=== PATIENT | female | born 1990 | race Caucasian/White ===

== ENCOUNTER 2017-01-18 19:46 | Observation (INO) | payer OTHER ==
[~2017-01-18] VITALS: Ht 162.6 cm; Wt 112.5 kg
[2017-01-18 20:45] LABS: BILIRUBIN,URINE NEGATIVE (NEGATIVE); UROBILINOGEN,URINE NORMAL (NEGATIVE)
[2017-01-18 21:04] LABS: APPEARANCE,URINE CLOUDY (CLEAR); UA COLOR YELLOW (YELLOW)
[2017-01-18 21:05] LABS: UR BENZODIAZEPINE QUAL NEGATIVE (NEGATIVE); UR COCAINE QUAL NEGATIVE (NEGATIVE)
[2017-01-18] MEDS ORDERED: D5LR 1000ML 1,000 ML ONE (22:26)
[2017-01-18] MEDS ORDERED: LACTATED RINGERS 1,000 ML ONE (22:26)
[2017-01-18] MEDS ORDERED: TYLENOL PO PRN (22:30)
[2017-01-18] MEDS ORDERED: D5LR 1000ML 1,000 ML IV ONE (22:30)
[2017-01-18] MEDS ORDERED: LACTATED RINGERS 1,000 ML IV ONE (22:30)
[2017-01-18] MEDS ORDERED: TYLENOL PO ONE (22:46)
[2017-01-19] MEDS ORDERED: CEFD300C2 PO (00:15)
[2017-01-19] MEDS ORDERED: IRON1CAP13 PO (00:15)
== END 2017-01-19 00:36 | disposition home or self-care (01) ==
LOC: ATP 19:46
PROVIDERS: ADMIT Hospitalist; ATTEND Hospitalist
DX: O26.899 Other specified pregnancy related conditions, unspecified trimester (principal); R10.9 Unspecified abdominal pain; M54.9 Dorsalgia, unspecified; Z3A.00 Weeks of gestation of pregnancy not specified
CPT/HCPCS: 59025; 80307; 81000; 87086; 96360; 96361; G0378 ×5; J7042 ×2; J7120 ×2

== ENCOUNTER → 2017-02-20 | Outpatient (CLI) | payer OTHER ==
[~2017-02-20] VITALS: Ht 162.6 cm; Wt 113.4 kg
[~2017-02-20] MED LIST: CEFD300C2 PO; IRON1CAP13 PO
--- NOTE | 2017-02-20 12:52 | DIREP ---
PROCEDURE:US BIOPHYSICAL PROFILE W/O NON STRESS COMPARISON:None. INDICATIONS:O09.33 THIRD TRIMESTER INSUFFICIENT CARE FINDINGS: Breathing:Normal, 2. Movement:Normal, 2. Tone:Normal, 2. Fluid:Normal, 2. Summary Fetus Summary Estimated Weight:3209.27 g Heart Rate:156.83 bpm Gestational Age (BPD):8.8 cm; 35 weeks, 5 days; 21.1 % Gestational Age (HC):32.7 cm; 37 weeks, 0 days; 18.6 % Gestational Age (AC):34.2 cm; 38 weeks, 1 day; 81.8 % Gestational Age (FL):7.2 cm; 37 weeks, 0 days; 40 % EGA based on biometrics:37 weeks 0 days SARAI based on biometrics:March 13, 2017 Clinical GA:37 weeks 3 days Clinical SARAI:March 10, 2017 Cervical Length: 3.4 cm ANIVAL: 15.5 cm Position: Cephalic. Placental Location: Fundal. Previa: None demonstrated. CONCLUSION: 1. The biophysical profile is scored 8 out of 8. 2. biometrics suggest a gestational age of approximately 37W 0D, with an Estimated Weight (EFW) of 3209gm (7lb, 1oz). Dictated by: MONO Physician on 02/20/2017 at 10:45 AM ld
== END | disposition home or self-care (01) ==
LOC: RAD 09:30
PROVIDERS: ATTEND Hospitalist
DX: O09.33 Supervision of pregnancy with insufficient antenatal care, third trimester (principal); Z3A.37 37 weeks gestation of pregnancy
CPT/HCPCS: 59025; 76815; 76819

== ENCOUNTER 2017-03-04 00:09 | Inpatient (IN) | payer OTHER ==
[2017-02-27 13:40] VITALS: BP 154/75
[2017-02-27 14:16] LABS: BASOPHIL % 0.1 % (0.0-0.2); EOSINOPHIL # 0.1 10^3/uL (0.0-0.2); EOSINOPHIL % 0.5 % (0.0-5.0); HEMOGLOBIN 10.6 g/dL (12.0-15.0); LYMPHOCYTES # 2.4 10^3/uL (1.0-4.8); LYMPHOCYTES % 25.3 % (24.0-44.0); MEAN CELL HGB 26.4 pg (26-34); MEAN CELL HGB CONCENTRATION 31.5 g/dL (33-37); MEAN CORP VOLUME 83.8 fL (78-100); MEAN PLATELET VOLUME 11.8 fL (7.8-11.0); MONOCYTES # 0.6 10^3/uL (0.3-0.8); NEUTROPHIL # 6.4 10^3/uL (1.8-7.7); NEUTROPHILS % 67.6 % (41.0-85.0); RED CELL DISTRIBUTION WIDTH 13.8 % (11.5-14.5); WHITE BLOOD CELL 9.5 10^3/uL (4.5-11.0)
[2017-02-27 14:43] LABS: APPEARANCE,URINE CLEAR (CLEAR); BILIRUBIN,URINE NEGATIVE (NEGATIVE); UA COLOR AMBER (YELLOW); UROBILINOGEN,URINE NORMAL (NEGATIVE)
[~2017-03-04] VITALS: Ht 162.6 cm; Wt 117.0 kg
[2017-03-04] VITALS (9 sets, daily range): BP systolic 106–139; BP diastolic 57–81
[~2017-03-04 00:09] MED LIST changes: +CLEOCIN ONE; +LACTATED RINGERS 2,000 ML ONE; +NS 100ML 100 ML IV ONE
[2017-03-04] MEDS: LACTATED RINGERS 1,000 ML IV PRN ×2 (05:50→06:22)
[2017-03-04] MEDS ORDERED: LACTATED RINGERS 2,000 ML ONE (06:45)
[2017-03-04] MEDS ORDERED: BENADRYL ONE (06:45)
[2017-03-04] MEDS ORDERED: ZOFRAN ONE ×3 (06:45→20:10)
[2017-03-04] MEDS ORDERED: NS 100ML 100 ML IV ONE (06:45)
[2017-03-04] MEDS ORDERED: TORADOL ONE ×3 (06:46→21:37)
[2017-03-04] MEDS ORDERED: DURAMORPH ONE (06:46)
[2017-03-04] MEDS ORDERED: PITOCIN ONE (06:46)
[2017-03-04] MEDS ORDERED: VERSED ONE (06:46)
[2017-03-04] MEDS ORDERED: EPHEDRINE SULFATE ONE (06:47)
[2017-03-04] MEDS ORDERED: DECADRON ONE (06:47)
[2017-03-04] MEDS ORDERED: CLEOCIN IV ONE (07:00)
[2017-03-04] MEDS ORDERED: PITOCIN 0.02 UNIT in LACTATED RINGERS 1 ML IV SCH (09:28)
[2017-03-04] MEDS ORDERED: GAVISCON ES TABLET CHEW PO PRN (09:30)
[2017-03-04] MEDS ORDERED: LACTATED RINGERS IV SCH (09:30)
[2017-03-04] MEDS ORDERED: MILK OF MAGNESIA PO PRN (09:30)
[2017-03-04] MEDS ORDERED: DILAUDID IV PRN (09:30)
[2017-03-04] MEDS ORDERED: PHENERGAN IV PRN (09:30)
[2017-03-04] MEDS ORDERED: NORCO 7.5MG PO PRN (09:30)
[2017-03-04] MEDS ORDERED: AMBIEN PO PRN (09:30)
[2017-03-04] MEDS ORDERED: DEMEROL IV PRN (09:30)
[2017-03-04] MEDS ORDERED: BENADRYL PO PRN (09:30)
[2017-03-04] MEDS ORDERED: ZOFRAN ODT SL PRN (09:30)
--- NOTE | 2017-03-04 09:44 | PRM.OPH ---
Immediate Post Op Note Summary of Operation Date: Mar 04, 2017 Time: 09:38 Pre-Operative DX: IUP @ 39 1/7 WKS; H/O C/S X 3; UNDESIRED FERTILITY/DESIRES PERMANENT STERIL Post-OP DX: SAME Anesth.Used: SPINAL Indications: REPEAT LOW TRANSVERSE SECTION VIA PFANNENSTIEL SKIN INCISION, BILATERAL TUBAL LIGATION VIA [place] METHOD Physician's Summary: Healthy-appearing liveborn male in OA position, no nuchal cord noted, clear-colored fluid/membranes throughout. Baby boy born at 0837, Apgars of 8 and 9, weight 3215g (= 7# 1oz). Good cry heard in delivery room. Normal- appearing placenta. Uterus completely adhesed to anterior abdominal wall. Normal-appearing ovaries bilaterally/tubes bilaterally. Extensive adhesiolysis carried out to isolate lower uterine segment. BTL performed via [place] method. Assistants: Listed Assisting Physicians MIREYA HOOD MD; JAVIER WILLIAM CST; ABEBA TOMLIN CST Anesthesiologist/INDUSTRIAL PHOTOGRAPHER SONIA SOLIS CRNA Specimen(s) Removed: List Specimen: SEGMENTS OF RIGHT AND LEFT FALLOPIAN TUBES Estimated Blood Loss: EBL/ESTIMATED BLOOD LOSS: (MIL: 700 Complications: Complications: NONE Assessment & Plan: Update Surgical HX/Problems: (1) Status post repeat low transverse section (2) Encounter for female sterilization procedure (3) 39 weeks gestation of (4) H/O: Assessment & Plan: ROUTINE POSTOP/ CARE SONIA MOORE MD Mar 04, 2017 09:44
[2017-03-04] MEDS ORDERED: NUBAIN IV PRN (10:00)
[2017-03-04] MEDS ORDERED: REGLAN IV PRN (10:00)
[2017-03-04] MEDS ORDERED: NORCO 5MG PO PRN (10:00)
[2017-03-04] MEDS ORDERED: ZOFRAN IV PRN (10:00)
[2017-03-04] MEDS ORDERED: BENADRYL IV PRN (10:00)
[2017-03-04] MEDS ORDERED: NORCO 10MG PO PRN (10:00)
[2017-03-04] MEDS ORDERED: NARCAN IV PRN (10:00)
[2017-03-04] MEDS ORDERED: LACTATED RINGERS 1,000 ML ONE ×2 (13:59→22:08)
[2017-03-04] MEDS: ZOFRAN IV PRN ×2 (14:02→20:15)
--- NOTE | 2017-03-04 14:32 | NUR ---
8 & 9, PLACED IN WARM BLANKETS, LEFT WITH L/D STAFF Addendum: 03/04/17 at 1433 by Radha Palacios GEAR FINISHER RT Amended: Links added.
[2017-03-04] MEDS: TORADOL IV SCH ×2 (14:59→21:42)
[2017-03-04] MEDS ORDERED: TORADOL IV SCH (15:30)
[2017-03-04] MEDS ORDERED: LR/PITOCIN 500 ML IV SCH (16:30)
[2017-03-04] MEDS ORDERED: MILK OF MAGNESIA ONE (23:56)
[2017-03-05] MEDS ORDERED: NORCO 5MG PO ONE ×2 (04:33→14:53)
[2017-03-05 05:15] LABS: BASOPHIL % 0.1 % (0.0-0.2); EOSINOPHIL % 0.1 % (0.0-5.0); HEMOGLOBIN 7.7 g/dL (12.0-15.0); LYMPHOCYTES # 2.7 10^3/uL (1.0-4.8); LYMPHOCYTES % 20.3 % (24.0-44.0); MEAN CELL HGB 26.1 pg (26-34); MEAN CELL HGB CONCENTRATION 30.8 g/dL (33-37); MEAN CORP VOLUME 84.7 fL (78-100); MONOCYTES # 0.9 10^3/uL (0.3-0.8); MONOCYTES % 6.4 % (5.0-12.0); NEUTROPHIL # 9.8 10^3/uL (1.8-7.7); NEUTROPHILS % 72.7 % (41.0-85.0); RED CELL DISTRIBUTION WIDTH 13.8 % (11.5-14.5); WHITE BLOOD CELL 13.5 10^3/uL (4.5-11.0)
[2017-03-05] MEDS ORDERED: LEVAQUIN 100 ML IV ONE (06:21)
[2017-03-05] MEDS ORDERED: TORADOL ONE (06:22)
[2017-03-05] MEDS: TORADOL IV SCH ×2 (06:37)
[2017-03-05] MEDS ORDERED: LEVAQUIN 100 ML IV SCH (07:00)
--- NOTE | 2017-03-05 07:23 | NUR ---
Post op pain rounds POD #1 after SAB duramorph. Pt lying in bed with baby in arms. All sensations intact. No residual numbness. Pt has been ambulating. Pain well controlled. Pt is very pleased with anesthetic and SAb duramorph. No complications noted.
[2017-03-05] MEDS ORDERED: HYDR-925 PO (13:01)
--- NOTE | 2017-03-05 13:04 | PRM.DC ---
OB Discharge Summary Discharge Summary Discharge Diagnosis: S/P (S/P Repeat C/S WITH BTL) Complications: No Complications Abnormal Lab Results Laboratory Tests Test 03/05/17 04:50 White Blood Count 13.5 10^3/uL Red Blood Count 2.95 10^6/uL Hemoglobin 7.7 g/dL Hematocrit 25.0 % Mean Corpuscular Volume 84.7 fL Mean Corpuscular Hemoglobin 26.1 pg Mean Corpuscular Hemoglobin Concent 30.8 g/dL Red Cell Distribution Width 13.8 % Platelet Count 224 10^3/uL Mean Platelet Volume 11.0 fL Neutrophils (%) (Auto) 72.7 % Lymphocytes (%) (Auto) 20.3 % Monocytes (%) (Auto) 6.4 % Neutrophils # (Auto) 9.8 10^3/uL Lymphocytes # (Auto) 2.7 10^3/uL Monocytes # (Auto) 0.9 10^3/uL Absolute Immature Granulocyte (auto 0.05 10^3 u/L Eosinophils % 0.1 % Basophils % 0.1 % Basophils # 0.0 10^3/uL Eosinophil Count 0.0 10^3/uL Percent Immature Gran (Cell Imm) 0.40 % Medications: Other (Rx for [place] 7.5/325 #60 no refills--given to patient ahead of time (preop appointment)) Discharge Disposition: Stable Discharge Instructions: Pelvic Rest x 6 Weeks, Clinic F/U 1-2 Weeks, Regular Diet, Regular Activity, Meds as Prescribed, Call MD for Problems Additional Comments Extensive adhesiolysis performed during repeat C/S with BTL. Appreciate Dr Ishaan Garcia's assistance in the OR. SONIA MOORE MD Mar 05, 2017 13:04
[2017-03-05] MEDS ORDERED: MOTRIN ONE ×2 (14:53→23:40)
[2017-03-05] MEDS ORDERED: PRENATAL VITAMIN TABLET PO ONE (14:57)
[2017-03-05] MEDS: PRENATAL VITAMIN TABLET PO SCH (14:58)
[2017-03-05] MEDS: MOTRIN PO PRN ×3 (14:59→23:45)
[2017-03-05] MEDS ORDERED: NORCO 7.5MG PO ONE ×2 (15:00→23:40)
[2017-03-05] MEDS: NORCO 7.5MG PO PRN ×2 (15:02→23:44)
[2017-03-05] MEDS ORDERED: LANOLIN HYDROUS TP ONE ×2 (15:11→15:30)
[2017-03-06] MEDS ORDERED: NS 1000ML 1,000 ML ONE (09:39)
[2017-03-06] MEDS ORDERED: NORCO 7.5MG PO ONE (10:47)
[2017-03-06] MEDS ORDERED: MOTRIN ONE (10:47)
[2017-03-06] MEDS: NORCO 7.5MG PO PRN (10:52)
[2017-03-06] MEDS: MOTRIN PO PRN (10:52)
[2017-03-06] MEDS ORDERED: PRENATAL VITAMIN TABLET PO ONE (10:52)
[2017-03-06] MEDS: PRENATAL VITAMIN TABLET PO SCH (10:53)
[2017-03-06 18:09] VITALS: BP 131/59
== END 2017-03-06 11:30 | disposition home or self-care (01) | DRG 540 ==
LOC: LND 00:09 → EDPENDDISTM 03-06 11:30
PROVIDERS: ADMIT Hospitalist; ATTEND Hospitalist
PROC: 10D00Z1 Extraction of Products of Conception, Low, Open Approach (ICD-10-PCS; 2017-03-04)
PROC: 0UN90ZZ Release Uterus, Open Approach (ICD-10-PCS; 2017-03-04)
PROC: 0UB70ZZ Excision of Bilateral Fallopian Tubes, Open Approach (ICD-10-PCS; principal; 2017-03-04 08:00)
DX: O34.211 Maternal care for low transverse scar from previous cesarean delivery (principal); Z88.0 Allergy status to penicillin; Z30.2 Encounter for sterilization; Z37.0 Single live birth; Z3A.39 39 weeks gestation of pregnancy; Z87.891 Personal history of nicotine dependence
CPT/HCPCS: 36415; 59025; 76825; 81000; 85025; 86885; 86900; 86901; 86921; 87086; 88302; A4338; J1100; J1200; J1885; J1956; J2250; J2405; J2590; J3490; J7030; J7050; J7120; J2274

== ENCOUNTER 2017-03-07 19:37 | Observation (INO) | payer OTHER ==
[~2017-03-07] VITALS: Ht 162.6 cm; Wt 113.4 kg
[~2017-03-07 19:37] MED LIST changes: -CLEOCIN ONE; +HYDR-925 PO; -LACTATED RINGERS 2,000 ML ONE; -NS 100ML 100 ML IV ONE
--- NOTE | 2017-03-07 20:20 | NUR ---
URINE COLLECTED AND TAKEN TO LAB
[2017-03-07 20:21] LABS: BASOPHIL % 0.3 % (0.0-0.2); EOSINOPHIL # 0.1 10^3/uL (0.0-0.2); EOSINOPHIL % 0.6 % (0.0-5.0); HEMOGLOBIN 7.2 g/dL (12.0-15.0); LYMPHOCYTES % 25.4 % (24.0-44.0); MEAN CELL HGB 27.1 pg (26-34); MEAN CELL HGB CONCENTRATION 31.3 g/dL (33-37); MEAN CORP VOLUME 86.5 fL (78-100); MEAN PLATELET VOLUME 9.8 fL (7.8-11.0); MONOCYTES # 0.5 10^3/uL (0.3-0.8); MONOCYTES % 6.1 % (5.0-12.0); NEUTROPHIL # 5.2 10^3/uL (1.8-7.7); NEUTROPHILS % 66.8 % (41.0-85.0); RED CELL DISTRIBUTION WIDTH 13.5 % (11.5-14.5); WHITE BLOOD CELL 7.7 10^3/uL (4.5-11.0)
[2017-03-07 20:24] LABS: BILIRUBIN,URINE NEGATIVE (NEGATIVE); UROBILINOGEN,URINE NORMAL (NEGATIVE)
[2017-03-07 20:26] LABS: APPEARANCE,URINE HAZY (CLEAR); UA COLOR YELLOW (YELLOW)
[2017-03-07 20:37] LABS: CALCIUM 8.6 mg/dL (8.4-10.5); CARBON DIOXIDE 26.1 mmol/L (20.0-32)
--- NOTE | 2017-03-07 22:13 | ER.PDOC ---
General Chief Complaint: Fever Stated Complaint: FEVER,HEADACHE,TUBAL/ 03-04-17 TRAVEL OUT OF US: No Time seen by MD: 22:05 Source: patient History of Present Illness Initial Comments 26y/o female s/p section and b/l tubal ligation on 03/04/[address] Barrios now presents with fever since 6pm today. Associated Symptoms: denies symptoms Allergies: Coded Allergies: Penicillins (Unverified Adverse Reaction, Unknown, SICK TO STOMACH, 03/04/17 ) Home Meds Active Scripts Hydrocodone Bit/Acetaminophen ([place] 7.5-325 TABLET) 7.5-3,251 Ea Tablet, 1 EACH PO Q4H Y for Pain 1-3 when tolerating PO for 30 Days, #60 TABLET 0 Refills Prov:SONIA MOORE MD 03/05/17 Reported Medications Iron Fum & Ps Cmp/Vit C & B (INTEGRA CAPSULE) 1 Each Capsule, 1 EACH PO DAILY24 , CAPSULE 01/19/17 Discontinued Reported Medications Cefdinir (CEFDINIR) 300 Mg Capsule, 300 MG PO HS, CAPSULE 01/19/17 Past Medical History Medical History: no pertinent history Surgical History: appendectomy, , tonsillectomy, tubal LMP (females 10-50): C-SEC ON FRIDAY Family History Significant Family History: no pertinent family hx Social History Smoking: cigarettes, less than 1 pack/day Alcohol Use: none Drug Use: none Review of Systems Constitutional: fever EENTM: no symptoms reported Respiratory: no symptoms reported Cardiovascular: no symptoms reported Gastrointestinal: no symptoms reported Genitourinary: no symptoms reported Musculoskeletal: no symptoms reported Skin: no symptoms reported Psychiatric/Neurological: no symptoms reported Hematologic/Lymphatic: no symptoms reported Immunological/Allergic: no symptoms reported Physical Exam General Appearance: No Apparent Distress, WD/WN EENT: eyes nml inspection, nml ENT inspection, pharynx nml Neck: Non-Tender, Full Range of Motion, Supple, Normal Inspection Respiratory: chest non-tender, lungs clear, normal breath sounds, no respiratory distress CVS: reg rate & rhythm, no murmur, no gallop, pulses nml, nml capillary refill Gastrointestinal: Normal Bowel Sounds, No Organomegaly, No Pulsatile Mass, Non Tender, Other (Transverse lower abdominal wound vac in place.) Back: Normal Inspection, No CVA Tenderness Extremities: Normal Range of Motion, Non-Tender, Normal Inspection, No Pedal Edema, No Calf Tenderness, Normal Capillary Refill 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, No Motor/Sensory Deficits, Alert, Normal Mood/Affect, Oriented x 3 Skin: Normal Color, Warm/Dry Lymphatic: No Adenopathy Results/Orders Results/Orders Laboratory Tests Test 03/07/17 20:18 White Blood Count 7.7 10^3/uL (4.5-11.0) Red Blood Count 2.66 10^6/uL (4.00-5.20) Hemoglobin 7.2 g/dL (12.0-15.0) Hematocrit 23.0 % (36.0-46.0) Mean Corpuscular Volume 86.5 fL (78-100) Mean Corpuscular Hemoglobin 27.1 pg (26-34) Mean Corpuscular Hemoglobin Concent 31.3 g/dL (33-37) Red Cell Distribution Width 13.5 % (11.5-14.5) Platelet Count 201 10^3/uL (150-400) Mean Platelet Volume 9.8 fL (7.8-11.0) Neutrophils (%) (Auto) 66.8 % (41.0-85.0) Lymphocytes (%) (Auto) 25.4 % (24.0-44.0) Monocytes (%) (Auto) 6.1 % (5.0-12.0) Neutrophils # (Auto) 5.2 10^3/uL (1.8-7.7) Lymphocytes # (Auto) 2.0 10^3/uL (1.0-4.8) Monocytes # (Auto) 0.5 10^3/uL (0.3-0.8) Absolute Immature Granulocyte (auto 0.06 10^3 u/L (0-2) Eosinophils % 0.6 % (0.0-5.0) Basophils % 0.3 % (0.0-0.2) Basophils # 0.0 10^3/uL (0.0-0.1) Eosinophil Count 0.1 10^3/uL (0.0-0.2) Urine Collection Type CCMS Urine Color YELLOW (YELLOW) Urine Appearance HAZY (CLEAR) Urine Bilirubin NEGATIVE MG/DL (NEGATIVE) Urine Ketones NEGATIVE (NEGATIVE) Urine Specific [place] 1.010 (1.005-1.035) Urine pH 6 (5.0-6.0) Urine Protein 15 mg/dL (NEGATIVE) Urine Urobilinogen NORMAL (NEGATIVE) Urine Nitrate NEGATIVE (NEGATIVE) Urine Leukocyte Esterase 100/ul 1+ (NEGATIVE) Urine Blood 250 4+ (NEGATIVE) Urine RBC 5-10 RBC/HPF (NONE SEEN) Urine WBC 5-10 WBC/HPF (0-2) Urine Squamous Epithelial Cells FEW #/HPF (FEW) Urine Bacteria FEW (NONE SEEN) Urine Glucose NORMAL (NEGATIVE) Sodium Level 140 mmol/L (132-145) Potassium Level 3.7 mmol/L (3.6-5.2) Chloride Level 105.0 mmol/L (96-109) Carbon Dioxide Level 26.1 mmol/L (20.0-32) Anion Gap 12.6 Blood Urea Nitrogen 8 mg/dL (7-18) Creatinine 0.85 mg/dL (0.59-1.40) Estimated GFR () 98.6 (>/=60) BUN/Creatinine Ratio 9.0 Glucose Level 92 mg/dL (70-110) Calcium Level 8.6 mg/dL (8.4-10.5) Total Bilirubin 0.3 mg/dL (0.2-1.0) Aspartate Amino Transf (AST/SGOT) 22 U/L (0-35) Alanine Aminotransferase (ALT/SGPT) 25 U/L (12-78) Alkaline Phosphatase 91 U/L (50-136) Total Protein 6.5 g/dL (6.4-8.2) Albumin 2.4 g/dL (3.4-5.0) Globulin 4.1 Percent Immature Gran (Cell Imm) 0.80 % (0.00-0.50) Progress Progress cbc: Hb=7.2, wbc=7.7. UA: Eneida+, wbc 5-10/hpf,rbc 5-10/hpf. CMP: normal except for Alb of 2.4. Departure Time of Disposition: 22:27 Disposition: 09 ADMITTED INPATIENT Impression: Primary Impression: Fever Additional Impression: UTI (urinary tract infection) Condition: Stable Referrals: SONIA MOORE MD (PCP) PRIMARY CARE PROVIDER Comments PT was discussed with Dr Varner,who accepted pt for admission for further evaluation. Duration or Time Spent with Pa: 30mins SANDEEP INFANTE MD Mar 07, 2017 22:13
--- NOTE | 2017-03-07 23:08 | NUR ---
UNSUCCESSFUL IV ATTEMPT X 2
[2017-03-07] MEDS ORDERED: NS 100ML 100 ML IV ONE (23:26)
[2017-03-07] MEDS ORDERED: NS 1000ML 1,000 ML ONE (23:27)
[2017-03-07] MEDS ORDERED: ROCEPHIN ONE (23:27)
[2017-03-07] MEDS ORDERED: D5LR 1000ML 1,000 ML IV SCH (23:30)
[2017-03-07] MEDS ORDERED: NS 1000ML 1,000 ML IV ONE ×2 (23:30)
[2017-03-07] MEDS ORDERED: ROCEPHIN 1,000 MG in NS 100ML 100 ML IV ONE (23:30)
[2017-03-08] MEDS ORDERED: NS 1000ML 1,000 ML ONE (01:07)
[2017-03-08] MEDS: MOTRIN PO PRN ×2 (01:09→20:34)
[2017-03-08] MEDS: NORCO 5MG PO PRN ×2 (01:09→17:03)
[2017-03-08 05:23] LABS: BASOPHIL % 0.2 % (0.0-0.2); EOSINOPHIL # 0.1 10^3/uL (0.0-0.2); EOSINOPHIL % 1.4 % (0.0-5.0); LYMPHOCYTES # 2.2 10^3/uL (1.0-4.8); MEAN CELL HGB 25.7 pg (26-34); MEAN CELL HGB CONCENTRATION 29.4 g/dL (33-37); MEAN CORP VOLUME 87.2 fL (78-100); MEAN PLATELET VOLUME 10.2 fL (7.8-11.0); MONOCYTES # 0.4 10^3/uL (0.3-0.8); MONOCYTES % 7.1 % (5.0-12.0); NEUTROPHILS % 52.1 % (41.0-85.0); RED CELL DISTRIBUTION WIDTH 13.6 % (11.5-14.5); WHITE BLOOD CELL 5.8 10^3/uL (4.5-11.0)
[2017-03-08 05:33] LABS: HEMOGLOBIN 5.8 g/dL (12.0-15.0)
--- NOTE | 2017-03-08 08:45 | NUR ---
DR. HOOD IN TO SEE PT AND DISCUSS POC. ORDERS REC FOR ONE UNIT PRBC'S.
[2017-03-08 09:00] VITALS: BP 132/65
--- NOTE | 2017-03-08 09:00 | NUR ---
VS AND CRITICAL SYSTEMS TECHNICIAN DR. HOOD ORDERED 1 UNIT PRBC
--- NOTE | 2017-03-08 09:15 | NUR ---
LAB PHONED UNIT PRBC ONE UNIT READY FOR TRANSFUSION
[2017-03-08] MEDS ORDERED: NS 500ML 500 ML IV ONE (09:25)
--- NOTE | 2017-03-08 09:30 | NUR ---
PRBC'S OBTAINED FROM LAB
[2017-03-08] MEDS ORDERED: TYLENOL PO ONE ×2 (09:37→09:55)
[2017-03-08 09:44] VITALS: BP 132/65
--- NOTE | 2017-03-08 09:44 | NUR ---
SEE TRANSFUSION RECORD
[2017-03-08 10:00] VITALS: BP 126/59
--- NOTE | 2017-03-08 10:00 | NUR ---
SNACK SERVED SANDWICH TRAY AND DR. MASON.
[2017-03-08 10:30] VITALS: BP 128/60
[2017-03-08 11:30] VITALS: BP 125/65
--- NOTE | 2017-03-08 11:30 | NUR ---
TRANSFUSION COMPLETED NO ADVERSE REACTIONS.
--- NOTE | 2017-03-08 12:00 | NUR ---
REG DIET SERVED.
--- NOTE | 2017-03-08 13:00 | NUR ---
STATUS RESTING IN BED. INFANT IN CRIB AT BEDSIDE. HAS BEEN PUMPING AND FEEDING INFANT. DENIES ANY PAIN,H/A, SORTNESS OF BREATH OR CHEST PAIN. IVF INFUSING.
--- NOTE | 2017-03-08 14:41 | NUR ---
DR. HOOD NOTIFIED ORDERS REC TO REPEAT CBC AT 1530 AND JULY SL PT.
--- NOTE | 2017-03-08 14:45 | NUR ---
IVF DC'D AND SL MAINTAINED.
[2017-03-08 15:05] LABS: BASOPHIL % 0.2 % (0.0-0.2); EOSINOPHIL # 0.1 10^3/uL (0.0-0.2); EOSINOPHIL % 1.2 % (0.0-5.0); LYMPHOCYTES # 2.2 10^3/uL (1.0-4.8); LYMPHOCYTES % 36.9 % (24.0-44.0); MEAN CELL HGB 27.1 pg (26-34); MEAN CELL HGB CONCENTRATION 30.8 g/dL (33-37); MEAN PLATELET VOLUME 9.9 fL (7.8-11.0); MONOCYTES # 0.5 10^3/uL (0.3-0.8); MONOCYTES % 7.7 % (5.0-12.0); NEUTROPHIL # 3.2 10^3/uL (1.8-7.7); RED CELL DISTRIBUTION WIDTH 13.9 % (11.5-14.5)
[2017-03-08 15:30] VITALS: BP 137/53
--- NOTE | 2017-03-08 15:37 | NUR ---
DR. HOOD NOTIFIED OF CBC RESULTS AND VS. NO NEW ORDERS.
[2017-03-08] MEDS ORDERED: NORCO 5MG PO ONE (17:01)
--- NOTE | 2017-03-08 17:45 | NUR ---
UP AND ABOUT IN ROOM. DENIES PAIN.
--- NOTE | 2017-03-08 19:00 | NUR ---
FOR THIS SHIFT 7P-7A SEE [facility] FOR ASSESSMENT AND CARE NOTES.
[2017-03-08] MEDS ORDERED: MOTRIN ONE (20:32)
[2017-03-09] MEDS ORDERED: NORCO 5MG PO ONE (00:56)
[2017-03-09] MEDS: NORCO 5MG PO PRN (01:06)
[2017-03-09] MEDS ORDERED: IRON1CAP17 PO (09:00)
[2017-03-09 09:16] VITALS: BP 126/58
--- NOTE | 2017-03-09 19:22 | DSH ---
DATE OF DISCHARGE: 03/09/2017 ADMITTING DIAGNOSES: 1. Fever. 2. Postop. DISCHARGE DIAGNOSES: 1. Severe anemia. 2. Fever. HISTORY AND HOSPITAL COURSE: The patient presented to the Emergency Room with a fever to 101 degrees Fahrenheit. She was evaluated in the emergency room and it was felt she had a urinary tract infection. On further assessment, it was noted she was profoundly anemic and had a precipitous drop from discharge to readmission. She was admitted and given a unit of blood and has done well since then. She did get a gram of Rocephin over concerns of a possible infection with the fever; however, I think this was likely due to hemoperitoneum which resulted from either the or the tubal ligation and just a byproduct of blood breakdown. The patient did note an exceptional amount of pain in the left upper abdomen, but this resolved with nonsteroidals. After the transfusion, she has done well, her headache that she also complained of has improved, her pain is controlled, and I am going to let her go home. DISPOSITION: To home. DISCHARGE CONDITION: Stable. MEDICATIONS: I have asked her to take Integra Plus for 90 days to re-establish her iron stores and to help facilitate getting her to a normal hemoglobin level. FOLLOWUP INSTRUCTION: She is going to follow up with Dr. Melgar on Friday as scheduled so he can remove the wound VAC he had placed during surgery. Ishaan Garcia MD DR: SYL/thai JOB# [id number]
== END 2017-03-09 09:49 | disposition home or self-care (01) ==
LOC: ER 19:37 → LND 22:30 → INTOOBSV 22:30
PROVIDERS: ADMIT Obstetrics & Gynecology; ATTEND Obstetrics & Gynecology
DX: R50.9 Fever, unspecified (principal); F17.210 Nicotine dependence, cigarettes, uncomplicated; N39.0 Urinary tract infection, site not specified; D64.9 Anemia, unspecified; Z98.890 Other specified postprocedural states
CPT/HCPCS: 36415 ×2; 80053; 81000; 85025 ×3; 86885; 86900 ×2; 86901; 86921; 87086; 96361; 96365; 99285; G0378 ×35; J0696 ×2; J7030 ×2; J7040; J7042; J7050 ×2; 36430; P9016